=== PATIENT | female | born 1995 | race Two or more races ===

== ENCOUNTER 2021-10-29 14:00 | Outpatient (CLI) | payer OTHER | END 2021-10-29 14:05 | disposition home or self-care (01) | LOC: PPH VACUNA 14:00 | PROVIDERS: ATTEND Emergency Medicine Pediatric Emergency Medicine | DX: Z23 Encounter for immunization (principal) ==

== ENCOUNTER 2022-01-23 08:00 | Outpatient (CLI) | payer OTHER | END 2022-01-23 08:05 | disposition home or self-care (01) | LOC: LAB 08:00 | DX: E03.9 Hypothyroidism, unspecified (principal) ==

== ENCOUNTER 2022-03-04 11:45 | Outpatient (CLI) | payer OTHER | END 2022-03-04 11:55 | disposition home or self-care (01) | LOC: LAB 11:45 | DX: U07.1 COVID-19 (principal) ==

== ENCOUNTER 2022-05-27 08:30 | Outpatient (CLI) | payer OTHER | END 2022-05-27 08:31 | disposition home or self-care (01) | LOC: LAB 08:30 | PROVIDERS: ATTEND Student in an Organized Health Care Education/Training Program | DX: D64.9 Anemia, unspecified (principal); E03.8 Other specified hypothyroidism; N92.1 Excessive and frequent menstruation with irregular cycle; I10 Essential (primary) hypertension; C51.9 Malignant neoplasm of vulva, unspecified; N30.00 Acute cystitis without hematuria; E83.51 Hypocalcemia; A64 Unspecified sexually transmitted disease; N39.0 Urinary tract infection, site not specified; R97.8 Other abnormal tumor markers; R79.89 Other specified abnormal findings of blood chemistry; E55.9 Vitamin D deficiency, unspecified; A60.9 Anogenital herpesviral infection, unspecified; Z12.11 Encounter for screening for malignant neoplasm of colon ==

== ENCOUNTER → 2022-07-24 | Outpatient (CLI) | payer OTHER | END | disposition home or self-care (01) | LOC: LAB 08:30 | PROVIDERS: ATTEND Internal Medicine Endocrinology, Diabetes & Metabolism | DX: E78.00 Pure hypercholesterolemia, unspecified (principal); E55.9 Vitamin D deficiency, unspecified; E03.8 Other specified hypothyroidism ==

== ENCOUNTER 2022-08-14 07:35 | Outpatient (CLI) | payer OTHER | END 2022-08-14 07:37 | disposition home or self-care (01) | LOC: LAB 07:35 | PROVIDERS: ATTEND Internal Medicine Endocrinology, Diabetes & Metabolism | DX: E03.8 Other specified hypothyroidism (principal) ==

== ENCOUNTER 2022-10-09 13:35 | Outpatient (CLI) | payer OTHER | END 2022-10-09 13:42 | disposition home or self-care (01) | LOC: RAD 13:35 | DX: M25.522 Pain in left elbow (principal) ==

== ENCOUNTER 2022-11-20 10:40 | Outpatient (CLI) | payer OTHER | END 2022-11-20 10:50 | disposition home or self-care (01) | LOC: PPH VACUNA 10:40 | PROVIDERS: ATTEND Emergency Medicine Pediatric Emergency Medicine | DX: Z23 Encounter for immunization (principal) ==

== ENCOUNTER → 2023-01-29 08:41 | Outpatient (CLI) | payer OTHER ==
[2023-01-29 11:09] LABS: ALBUMIN 3.9 gm/dL (3.4-5.0); BILIRUBIN TOTAL 0.37 mg/dL (0.3-1.2); CHOL HDL RATIO 3.1 (0-5.0); CREATININE SERUM 0.72 mg/dL (0.55-1.02); GFR 96.45; GLOBULINA 3.5 G/DL (2.4-3.5); POTASSIUM 4.51 mEq/L (3.5-5.1); T4 FREE 1.18 NG/ML (0.76-1.46); TOTAL PROTEIN 7.4 gm/dL (6.4-8.2); TSH 2.45 uIU/mL (0.358-3.74)
== END | disposition home or self-care (01) ==
LOC: LAB 08:41
PROVIDERS: ATTEND Internal Medicine Endocrinology, Diabetes & Metabolism
DX: E03.8 Other specified hypothyroidism (principal); E78.00 Pure hypercholesterolemia, unspecified

== ENCOUNTER → 2023-04-05 | Outpatient (CLI) | payer OTHER ==
[2023-04-05 08:51] LABS: HEMATOCRIT 41.5 % (36.0-45.00); MEAN CELL VOLUME 91.3 fL (80.00-100.00); MEAN CORPUSCULAR HEMOGLOBIN 30.8 pg (27.00-32.0); MEAN CORPUSCULAR HGB CONC 33.7 g/dl (32.0-36.0); PLATELET COUNT 212 K/uL (150-450); RED BLOOD COUNT 4.54 M/uL (4.00-6.00); RED CELL DISTRIBUTION WIDTH 14.2 % (11.5-14.5)
[2023-04-05 09:15] LABS: PH,URINE 7.5 (5.0-8.0); URINE APPEARANCE Clear; URINE BILIRRUBIN Negative (NEGATIVE); URINE BLOOD Negative; URINE COLOR Yellow; URINE GLUCOSE Negative (NEGATIVE); URINE LEUKOCYTE Moderate; URINE NITRATE Negative; URINE PROTEIN Negative (NEGATIVE); URINE UROBILINOGEN 0.2 E.U./dl
[2023-04-05 09:20] LABS: URINE BACTERIA 2360.9 uL (0.0-1933); URINE EPITHELIAL CELLS 64.3 uL (0.0-38.8); URINE RBC 15.5 uL (0.0-20.8); URINE WBC 52.2 uL (0.0-23.2)
[2023-04-05 09:33] LABS: ALBUMIN 4.2 gm/dL (3.4-5.0); BILIRUBIN TOTAL 0.25 mg/dL (0.3-1.2); CALCIUM 9.5 mg/dL (8.5-10.1); CREATININE SERUM 0.75 mg/dL (0.55-1.02); GFR 92.01; GLOBULINA 3.3 G/DL (2.4-3.5); POTASSIUM 4.48 mEq/L (3.5-5.1); T4 TOTAL 9.43 UG/DL (4.8-13.9); TOTAL PROTEIN 7.5 gm/dL (6.4-8.2); TSH 1.96 uIU/mL (0.358-3.74)
[2023-04-06 22:10] LABS: chla t Negative (Negative); neiss Negative (Negative)
== END | disposition home or self-care (01) ==
LOC: LAB 07:27
DX: E03.9 Hypothyroidism, unspecified (principal); Z11.3 Encounter for screening for infections with a predominantly sexual mode of transmission; E11.9 Type 2 diabetes mellitus without complications; E78.2 Mixed hyperlipidemia

== ENCOUNTER 2023-05-08 18:09 | Emergency (ER) | payer OTHER ==
[~2023-05-08] VITALS: Ht 147.3 cm; Wt 49.9 kg
[2023-05-08] MEDS ORDERED: SYNTHROID88 MCG PO (18:24)
[2023-05-08] MEDS ORDERED: FAMOTIDINE/PF 20 MG/2 ML VIAL IV ONE (19:00)
[2023-05-08] MEDS ORDERED: 0.9 % SODIUM CHLORIDE 1,000 ML IV SCH (19:00)
[2023-05-08] MEDS ORDERED: ONDANSETRON HCL 2 MG/ML VIAL IV ONE (19:00)
[2023-05-08] MEDS ORDERED: DICYCLOMINE HCL 20 MG TABLET PO ONE (19:00)
[2023-05-08 19:18] LABS: PH,URINE 5.5 (5.0-8.0); URINE APPEARANCE Cloudy; URINE BILIRRUBIN Negative (NEGATIVE); URINE BLOOD Negative; URINE COLOR Yellow; URINE GLUCOSE Negative (NEGATIVE); URINE LEUKOCYTE Small; URINE NITRATE Negative; URINE PROTEIN Negative (NEGATIVE)
[2023-05-08 19:21] LABS: HEMOGLOBIN 15.7 g/dL (12.0-15.00); MEAN CELL VOLUME 92.7 fL (80.00-100.00); MEAN CORPUSCULAR HEMOGLOBIN 31.6 pg (27.00-32.0); MEAN CORPUSCULAR HGB CONC 34.1 g/dl (32.0-36.0); PLATELET COUNT 204 K/uL (150-450); RED BLOOD COUNT 4.96 M/uL (4.00-6.00); RED CELL DISTRIBUTION WIDTH 13.8 % (11.5-14.5)
[2023-05-08 19:21] LABS: URINE BACTERIA 1503.1 uL (0.0-1933); URINE EPITHELIAL CELLS 73.1 uL (0.0-38.8); URINE RBC 16.3 uL (0.0-20.8); URINE WBC 74.3 uL (0.0-23.2)
[2023-05-08 19:53] LABS: CALCIUM 9.5 mg/dL (8.5-10.1); CREATININE SERUM 0.91 mg/dL (0.55-1.02); GFR 73.61; POTASSIUM 4.84 mEq/L (3.5-5.1)
[2023-05-08] MEDS ORDERED: PEPCID AC20 MG PO (20:47)
[2023-05-08] MEDS ORDERED: ZOFRAN8 MG PO (20:47)
[2023-05-08] MEDS ORDERED: DICY20TA PO (20:47)
== END 2023-05-08 21:11 | disposition home or self-care (01) ==
LOC: ER 18:09
PROVIDERS: General Practice
DX: K52.89 Other specified noninfective gastroenteritis and colitis (principal); R19.7 Diarrhea, unspecified; E03.8 Other specified hypothyroidism

== ENCOUNTER 2023-05-18 08:49 | Outpatient (CLI) | payer OTHER ==
[~2023-05-18 08:49] MED LIST: DICY20TA PO; PEPCID AC20 MG PO; SYNTHROID88 MCG PO; ZOFRAN8 MG PO
[2023-05-18 10:23] LABS: URINE APPEARANCE Clear; URINE BILIRRUBIN Negative (NEGATIVE); URINE BLOOD Negative; URINE COLOR Yellow; URINE GLUCOSE Negative (NEGATIVE); URINE LEUKOCYTE Small; URINE NITRATE Positive; URINE PROTEIN Negative (NEGATIVE); URINE UROBILINOGEN 0.2 E.U./dl
[2023-05-18 10:26] LABS: URINE EPITHELIAL CELLS 16.6 uL (0.0-38.8); URINE RBC 12.6 uL (0.0-20.8); URINE WBC 55.6 uL (0.0-23.2)
[2023-05-18 10:46] LABS: URINE BACTERIA > 9821.5 uL (0.0-1933)
== END 2023-05-18 08:50 | disposition home or self-care (01) ==
LOC: LAB 08:49
PROVIDERS: ATTEND Emergency Medicine
DX: N30.00 Acute cystitis without hematuria (principal)

== ENCOUNTER 2023-12-14 10:40 | Outpatient (CLI) | payer OTHER ==
[2023-12-14 12:28] LABS: MYCOPLASMA PNEUMONIAE IGM NON REACTIVE (NO REACTIVE)
== END 2023-12-14 10:41 | disposition home or self-care (01) ==
LOC: LAB 10:40
DX: J20.8 Acute bronchitis due to other specified organisms (principal); R05.2 Subacute cough; M35.81 Multisystem inflammatory syndrome

== ENCOUNTER 2023-12-29 11:00 | Outpatient (CLI) | payer OTHER | END 2023-12-29 11:15 | disposition home or self-care (01) | LOC: PPH VACUNA 11:00 | PROVIDERS: ATTEND Emergency Medicine Pediatric Emergency Medicine | DX: Z23 Encounter for immunization (principal) ==

== ENCOUNTER 2024-01-28 08:14 | Outpatient (CLI) | payer OTHER ==
[2024-01-28 10:54] LABS: BILIRUBIN TOTAL 0.39 mg/dL (0.3-1.2); CALCIUM 8.6 mg/dL (8.5-10.1); CHOL HDL RATIO 2.5 (0-5.0); CREATININE SERUM 0.92 mg/dL (0.55-1.02); GFR 72.17; GLOBULINA 3.6 G/DL (2.4-3.5); POTASSIUM 4.44 mEq/L (3.5-5.1); T4 FREE 0.93 NG/ML (0.76-1.46); TOTAL PROTEIN 7.6 gm/dL (6.4-8.2)
[2024-01-28 10:56] LABS: TSH 9.12 uIU/mL (0.358-3.74)
== END 2024-01-28 08:15 | disposition home or self-care (01) ==
LOC: LAB 08:14
PROVIDERS: ATTEND Internal Medicine Endocrinology, Diabetes & Metabolism
DX: E03.8 Other specified hypothyroidism (principal); E78.00 Pure hypercholesterolemia, unspecified

== ENCOUNTER 2024-05-05 08:01 | Outpatient (CLI) | payer OTHER ==
[2024-05-05 10:22] LABS: T4 FREE 1.4 NG/ML (0.76-1.46)
[2024-05-05 10:26] LABS: TSH 0.246 uIU/mL (0.358-3.74)
== END 2024-05-05 08:11 | disposition home or self-care (01) ==
LOC: LAB 08:01
PROVIDERS: ATTEND Internal Medicine Endocrinology, Diabetes & Metabolism
DX: E03.8 Other specified hypothyroidism (principal)

== ENCOUNTER → 2024-06-23 08:28 | Outpatient (CLI) | payer OTHER ==
[2024-06-23 11:31] LABS: T4 FREE 1.34 NG/ML (0.76-1.46)
[2024-06-23 11:34] LABS: TSH 0.159 uIU/mL (0.358-3.74)
== END | disposition home or self-care (01) ==
LOC: LAB 08:28
PROVIDERS: ATTEND Internal Medicine Endocrinology, Diabetes & Metabolism
DX: E03.8 Other specified hypothyroidism (principal)

== ENCOUNTER → 2024-09-26 08:04 | Outpatient (CLI) | payer OTHER ==
[2024-09-26 09:48] LABS: T4 FREE 1.12 NG/ML (0.76-1.46); TSH 1.19 uIU/mL (0.358-3.74)
== END | disposition home or self-care (01) ==
LOC: LAB 08:04
PROVIDERS: ATTEND Internal Medicine Endocrinology, Diabetes & Metabolism
DX: E03.8 Other specified hypothyroidism (principal)

== ENCOUNTER 2024-12-26 11:36 | Outpatient (CLI) | payer OTHER | END 2024-12-26 11:46 | disposition home or self-care (01) | LOC: PPH VACUNA 11:36 | PROVIDERS: ATTEND Emergency Medicine Pediatric Emergency Medicine | DX: Z23 Encounter for immunization (principal) ==